=== PATIENT | male | born 1960 | race Caucasian/White ===

== ENCOUNTER 2017-04-19 12:14 | Inpatient (IN) | payer OTHER ==
[~2017-04-19] VITALS: Ht 177.8 cm; Wt 107.0 kg
[~2017-04-19 12:14] MED LIST: ACET-8386 PO; DIAZ5TAB6 PO; ENAL20TA19 PO; FURO-572 PO; HYDR4TAB6 PO; LOV40I SUBQ; LYR25 PO; NAPR-54 PO; WARF3TAB PO
[2017-04-19 12:22] VITALS: BP 142/106
[2017-04-19] MEDS ORDERED: NACL 0.9% 1,000 ML IV ONE (12:40)
[2017-04-19] MEDS ORDERED: METOPROLOL 50 MG TAB PO ONE (12:40)
[2017-04-19] MEDS ORDERED: ASPIRIN 81 MG TAB.CHEW PO ONE (12:40)
[2017-04-19] MEDS ORDERED: DIAZEPAM PFS 10 MG/2 ML SYR IVP ONE (12:40)
[2017-04-19] MEDS ORDERED: NITROGLYCERIN 2% 1 GM PKT TP ONE (12:40)
[2017-04-19] MEDS ORDERED: HYDROmorphone PFS 2 MG/ML SYR IVP ONE (13:25)
[2017-04-19 13:28] LABS: HEMATOCRIT 40.1 % (36-52); MEAN CORPUSCULAR HEMOGLOBIN 27 pg (27-31); MEAN CORPUSCULAR HGB CONC 32 g/dL (33-37); MEAN CORPUSCULAR VOLUME 84 fL (80-94); PLATELET COUNT (AUTO) 417 K/uL (140-450); RED BLOOD CELL COUNT(AUTO) 4.75 MIL/uL (4.20-6.10); WHITE BLOOD COUNT (AUTO) 10.1 K/uL (4.8-10.8)
[2017-04-19 13:44] LABS: PROTHROMBIN TIME 9.3 secs (10.8-13.4)
[2017-04-19 13:47] LABS: EOSINOPHILS % (MANUAL) 4 % (0-4); LYMPHOCYTES % (MANUAL) 20 % (20-46); MONOCYTES % (MANUAL) 11 % (5-12)
[2017-04-19 13:48] LABS: ALBUMIN 3.4 g/dL (3.4-5.0); ANION GAP 13.4 (8-16); CARBON DIOXIDE 25.6 mmol/L (21-32); TOTAL BILIRUBIN 0.4 mg/dL (0.0-1.0)
[2017-04-19] MEDS ORDERED: INSULIN LISPRO SLIDING SCALE 100 UNITS/ML VIAL SUBQ PRN (14:40)
[2017-04-19] MEDS ORDERED: LORazepam 0.5 MG TAB PO ONE (14:40)
[2017-04-19] MEDS ORDERED: HYDROmorphone 1 MG/ML AMP IVP PRN (14:40)
[2017-04-19] MEDS ORDERED: ACETAMINOPHEN 325 MG TAB PO PRN (14:40)
[2017-04-19] MEDS ORDERED: ALBUTEROL 0.083% 2.5 MG/3 ML NEBU IH PRN (14:40)
[2017-04-19] MEDS ORDERED: ONDANSETRON 4 MG/2 ML VIAL IVP PRN (14:40)
[2017-04-19 15:45] VITALS: BP 142/92
[2017-04-19 16:30] LABS: BARBITURATE, URINE NEG. ng/ml (NEG <=200); BENZODIAZEPINE, URINE POS. ng/mL (NEG <=200); CANNABINOID, URINE POS. ng/mL (NEG <=50); COCAINE, URINE NEG. ng/mL (NEG <=300); OPIATE, URINE NEG. ng/mL (NEG <=2000); PHENCYCLIDINE SCREEN,URINE NEG. ng/mL (NEG <=25)
[2017-04-19] MEDS: BLOOD GLUCOSE MONITORING 1 DEV DEV FS SCH ×3 (16:30→20:46)
[2017-04-19] MEDS: HYDROmorphone PFS 2 MG/ML SYR IVP PRN ×2 (16:34→20:27)
[2017-04-19] MEDS ORDERED: LORazepam 0.5 MG TAB PO PRN (17:55)
[2017-04-19] MEDS ORDERED: PNEUMOCOCCAL VACCINE 23 MCG/0.5 ML VIAL IMVAC SCH (18:40)
[2017-04-19 20:00] VITALS: BP 118/72
[2017-04-19] MEDS: ALBUTEROL 0.083% 2.5 MG/3 ML NEBU INH SCH (20:02)
[2017-04-19] MEDS: BUDESONIDE 0.25 MG/2 ML NEBU INH SCH (20:03)
[2017-04-19] MEDS: FUROSEMIDE 40 MG/4 ML VIAL IVP SCH (20:27)
[2017-04-19] MEDS ORDERED: levETIRAcetam 500 MG TAB PO ONE (21:00)
[2017-04-19] MEDS ORDERED: METOPROLOL 25 MG TAB PO ONE (21:00)
[2017-04-19 21:18] LABS: CREATINE KINASE MB 1.7 ng/mL (0-3.6)
[2017-04-19] MEDS: ZOLPIDEM 10 MG TAB PO PRN (23:34)
[2017-04-20] VITALS (7 sets, daily range): BP systolic 117–136; BP diastolic 62–80
[2017-04-20] MEDS: HYDROmorphone PFS 2 MG/ML SYR IVP PRN ×6 (00:35→20:20)
[2017-04-20 04:09] LABS: HEMOGLOBIN 12.6 g/dL (12.0-18.0); MEAN CORPUSCULAR HEMOGLOBIN 27 pg (27-31); MEAN CORPUSCULAR HGB CONC 32 g/dL (33-37); MEAN CORPUSCULAR VOLUME 85 fL (80-94); PLATELET COUNT (AUTO) 388 K/uL (140-450); RED CELL DISTRIBUTION WIDTH 17.1 % (11.6-13.7); WHITE BLOOD COUNT (AUTO) 12.7 K/uL (4.8-10.8)
[2017-04-20 04:34] LABS: EOSINOPHILS % (MANUAL) 6 % (0-4); LYMPHOCYTES % (MANUAL) 37 % (20-46); MONOCYTES % (MANUAL) 5 % (5-12)
[2017-04-20 04:57] LABS: ALBUMIN 3.3 g/dL (3.4-5.0); ANION GAP 11.6 (8-16); CARBON DIOXIDE 28.5 mmol/L (21-32); POTASSIUM 4.1 mmol/L (3.5-5.1); TOTAL BILIRUBIN 0.5 mg/dL (0.0-1.0)
[2017-04-20 05:04] LABS: CHOL/HDL RATIO 1.6 (1-4.5); THYROID STIMULATING HORMONE 4.18 uIU/mL (0.34-3.74)
[2017-04-20] MEDS: BLOOD GLUCOSE MONITORING 1 DEV DEV FS SCH ×4 (06:42→20:19)
[2017-04-20] MEDS: BUDESONIDE 0.25 MG/2 ML NEBU INH SCH ×2 (07:34→18:47)
[2017-04-20] MEDS: ALBUTEROL 0.083% 2.5 MG/3 ML NEBU INH SCH ×3 (07:34→18:47)
[2017-04-20] MEDS: ASPIRIN 81 MG TAB.CHEW PO SCH (08:20)
[2017-04-20] MEDS: AZITHROMYCIN 250 MG TAB PO SCH (08:22)
[2017-04-20] MEDS: levETIRAcetam 500 MG TAB PO SCH ×2 (08:22→20:18)
[2017-04-20] MEDS: ENOXAPARIN 30 MG/0.3 ML SYR SUBQ SCH (08:29)
[2017-04-20] MEDS: FUROSEMIDE 40 MG/4 ML VIAL IVP SCH ×2 (08:34→20:19)
[2017-04-20] MEDS: METOPROLOL 25 MG TAB PO SCH ×2 (08:40→21:55)
[2017-04-20] MEDS ORDERED: FUROSEMIDE 40 MG/4 ML VIAL IVP SCH (09:00)
[2017-04-20 15:37] LABS: CREATINE KINASE MB 1.2 ng/mL (0-3.6)
[2017-04-20] MEDS: OSELTAMIVIR PHOSPHATE 75 MG CAP PO SCH (20:18)
[2017-04-20] MEDS: ZOLPIDEM 10 MG TAB PO PRN (22:18)
[2017-04-21] VITALS: BP 129/82
[2017-04-21] MEDS: HYDROmorphone PFS 2 MG/ML SYR IVP PRN ×3 (00:20→08:49)
[2017-04-21 04:00] VITALS: BP 114/81
[2017-04-21] MEDS: BLOOD GLUCOSE MONITORING 1 DEV DEV FS SCH (06:13)
[2017-04-21 06:32] LABS: BASOPHILS # (AUTO) 0.5 K/uL (0.00-0.22); BASOPHILS % (AUTO) 3.9 % (0.0-2.0); EOSINOPHILS # (AUTO) 0.6 K/uL (0-0.4); EOSINOPHILS % (AUTO) 4.3 % (0.0-4.0); HEMATOCRIT 40.8 % (36-52); LYMPHOCYTES # (AUTO) 2.3 K/uL (2.0-11.5); LYMPHOCYTES % (AUTO) 17.1 % (20.5-51.1); MEAN CORPUSCULAR HEMOGLOBIN 27 pg (27-31); MEAN CORPUSCULAR HGB CONC 32 g/dL (33-37); MEAN CORPUSCULAR VOLUME 84 fL (80-94); MONOCYTES # (AUTO) 0.6 K/uL (0.8-1.0); MONOCYTES % (AUTO) 4.2 % (1.7-9.3); NEUTROPHILS # (AUTO) 9.4 K/uL (1.8-7.7); NEUTROPHILS % (AUTO) 70.5 % (42.2-75.2); PLATELET COUNT (AUTO) 392 K/uL (140-450); RED BLOOD CELL COUNT(AUTO) 4.85 MIL/uL (4.20-6.10); RED CELL DISTRIBUTION WIDTH 16.9 % (11.6-13.7); WHITE BLOOD COUNT (AUTO) 13.4 K/uL (4.8-10.8)
[2017-04-21] MEDS: ALBUTEROL 0.083% 2.5 MG/3 ML NEBU INH SCH (06:59)
[2017-04-21] MEDS: BUDESONIDE 0.25 MG/2 ML NEBU INH SCH (07:00)
[2017-04-21 08:00] VITALS: BP 127/72
[2017-04-21] MEDS: METOPROLOL 25 MG TAB PO SCH (08:48)
[2017-04-21] MEDS: levETIRAcetam 500 MG TAB PO SCH (08:48)
[2017-04-21] MEDS: ASPIRIN 81 MG TAB.CHEW PO SCH (08:48)
[2017-04-21] MEDS: AZITHROMYCIN 250 MG TAB PO SCH (08:48)
[2017-04-21] MEDS: FUROSEMIDE 40 MG/4 ML VIAL IVP SCH (08:49)
[2017-04-21] MEDS: OSELTAMIVIR PHOSPHATE 75 MG CAP PO SCH (08:49)
[2017-04-21] MEDS: ENOXAPARIN 30 MG/0.3 ML SYR SUBQ SCH (08:58)
[2017-04-21] MEDS ORDERED: CLOP75TA26 PO (10:04)
[2017-04-21] MEDS ORDERED: ALBU0.0912 IH (10:04)
[2017-04-21] MEDS ORDERED: AZIT250T3 PO (10:04)
== END 2017-04-21 10:40 | disposition home or self-care (01) | DRG 139 ==
LOC: MED 12:14 → MTU 14:55 → OBSVTOIN 04-20 10:08
PROVIDERS: ADMIT Hospitalist; ATTEND Hospitalist
DX: J18.9 Pneumonia, unspecified organism (principal); J96.00 Acute respiratory failure, unspecified whether with hypoxia or hypercapnia; J20.9 Acute bronchitis, unspecified; I10 Essential (primary) hypertension; G40.909 Epilepsy, unspecified, not intractable, without status epilepticus; F41.9 Anxiety disorder, unspecified; F17.210 Nicotine dependence, cigarettes, uncomplicated; I25.10 Atherosclerotic heart disease of native coronary artery without angina pectoris; Z88.5 Allergy status to narcotic agent; Z79.01 Long term (current) use of anticoagulants; Z79.1 Long term (current) use of non-steroidal anti-inflammatories (NSAID); Z79.899 Other long term (current) drug therapy; Z95.5 Presence of coronary angioplasty implant and graft; Z88.6 Allergy status to analgesic agent; I25.2 Old myocardial infarction
CPT/HCPCS: 96374; 96375; 99285; G0378; 36415; 71010; 80053; 80305; 82550; 82553; 82948; 84443; 84484; 85025; 85610; 85730; 87081; 93005; 94640; C1758; J1170; J1650; J1815; J1940; J3360; J7030; J7613; J7626; Q0092